=== PATIENT | female | born 1965 | race Caucasian/White ===

== ENCOUNTER 2017-05-20 15:39 | Emergency (ER) | payer OTHER ==
[~2017-05-20] VITALS: Ht 160 cm; Wt 102.1 kg
[2017-05-20] MEDS ORDERED: NEURONTIN600 MG PO (15:51)
[2017-05-20] MEDS ORDERED: TORADOL 10 MG T10 MG PO (16:10)
[2017-05-20] MEDS ORDERED: FLEXERIL PO (16:10)
[2017-05-20 16:46] VITALS: BP 148/86
== END 2017-05-20 16:48 | disposition home or self-care (01) ==
LOC: M.ERS 15:39
DX: M62.830 Muscle spasm of back (principal); F32.9 Major depressive disorder, single episode, unspecified; F41.9 Anxiety disorder, unspecified; E03.8 Other specified hypothyroidism; Z88.0 Allergy status to penicillin; Z88.8 Allergy status to other drugs, medicaments and biological substances